=== PATIENT | male | born 2005 | race Caucasian/White ===

== ENCOUNTER 2023-08-22 02:54 | Emergency (ER) | payer SELFPAY ==
[~2023-08-22] VITALS: Ht 165.1 cm; Wt 69.9 kg
[2023-08-22 02:57] VITALS: TEMP 98.6
[2023-08-22] MEDS: SODIUM CHLORIDE 0.9% 1000ML 1,000 ML IV ONE (03:26)
[2023-08-22 03:45] VITALS: PULSE 116; RESP 20
[2023-08-22 04:05] VITALS: BP 124/87; PULSE 110; RESP 18; TEMP 98.6; O2SAT 98
== END 2023-08-22 04:05 | disposition other institution (70) ==
LOC: FSED 03:01
DX: S21.112A Laceration without foreign body of left front wall of thorax without penetration into thoracic cavity, initial encounter (principal); X99.1XXA Assault by knife, initial encounter; Y92.89 Other specified places as the place of occurrence of the external cause
CPT/HCPCS: 71046; 71250; 74150; 80053; 85025; 99284; J7030